=== PATIENT | female | born 1955 | race Caucasian/White ===

== ENCOUNTER 2017-11-27 06:39 | Day surgery (SDC) | payer OTHER ==
[2017-11-27] MEDS ORDERED: Midazolam 1 MG/ML 2 ML SDV IV ONE ×4 (06:40→07:43)
[2017-11-27] MEDS ORDERED: fentaNYL 100 MCG/2 ML SDV IV ONE ×3 (06:40→07:37)
[2017-11-27] MEDS ORDERED: Dextrose 5%-0.45% NaCl 1,000 ML IV SCH (07:15)
[2017-11-27] MEDS ORDERED: Midazolam 1 MG/ML 2 ML SDV ONE (07:21)
[2017-11-27] MEDS ORDERED: fentaNYL 100 MCG/2 ML SDV ONE (07:21)
--- NOTE | 2017-11-27 10:17 | OR ---
DATE: 11/27/2017 PREOPERATIVE DIAGNOSIS: Personal history of prior colon polyps. POSTOPERATIVE DIAGNOSIS: Personal history of prior colon polyps. PROCEDURE: Total colonoscopy. ANESTHESIA: Conscious sedation with IV Versed and fentanyl. SPECIMEN: None. OPERATIVE FINDINGS: Extensive sigmoid diverticulosis, otherwise, normal. RECOMMENDATION: Followup screening colonoscopy for polyps 10 years or earlier for other symptoms. INDICATION FOR PROCEDURE: This 62-year-old female had a prior colonoscopy 10 years ago with removal of polyps by her report. PROCEDURE IN DETAIL: After adequate preparation, a colonoscope was inserted into the rectum. This was easily passed all the way to the cecum. Confirmation of the cecum was made by visualization of the ileocecal valve on palpation in the right lower quadrant. A photograph of the ileocecal valve was taken. The bowel prep was excellent. On withdrawal of the scope, the only abnormality noted was extensive sigmoid diverticulosis. Otherwise, no recurrent polyps, colitis, masses, or bleeding sites. Anal and rectal examination were normal. Air was suctioned from the colon, and the scope was removed. [facility] /[id number]
== END 2017-11-27 08:59 | disposition home or self-care (01) ==
LOC: DL.ENDO 06:39
PROVIDERS: ATTEND Surgery
DX: Z12.11 Encounter for screening for malignant neoplasm of colon (principal); K57.30 Diverticulosis of large intestine without perforation or abscess without bleeding; Z86.010 Personal history of colon polyps; Z80.0 Family history of malignant neoplasm of digestive organs
CPT/HCPCS: 45378; J2250; J3010; J7042

== ENCOUNTER 2020-11-20 17:06 | Emergency (ER) | payer MEDICARE, OTHER ==
[2020-11-20] MEDS ORDERED: Sodium Chloride 0.9% 10 ML Syringe FLUSH PRN (17:57)
--- NOTE | 2020-11-20 18:03 | EDM.PDOC ---
<Ricky Pierre Kelly - Last Filed: 11/22/20 07:07> ED HPI GENERAL MEDICAL PROBLEM - General Chief Complaint: General Stated Complaint: RETAINING FLUID POST OP Time Seen by Provider: 11/20/20 17:40 Source of Information: Reports: Patient History Limitations: Reports: No Limitations - History of Present Illness INITIAL COMMENTS - FREE TEXT/NARRATIVE: 65 y/o F had surgery 11/14 to reconnect her colon. She reports that she was discharged yesterday and since last night she has developed severe edema in her legs and around her eyes. She reports no similar symptoms in the past. She has no other physial complaints. She denies fever, cough, chills, drugs, etoh, cp, db, abd pn, pelvic pn, extremity pn. Since her surgery pt has not been able to eat well and has olny been able to have broth and other foods with minimal nutrition. - Related Data Allergies Allergy/AdvReac Type Severity Reaction Status Date / Time levofloxacin [From Levaquin] Allergy Dizziness Verified 11/20/20 17:51 varenicline Allergy Unkown Verified 11/20/20 17:51 seasonal Allergy Unknown Uncoded 11/20/20 17:51 Home Meds: Home Meds Escitalopram [Lexapro] 10 mg PO DAILY 11/27/17 [History] Lisinopril 20 mg PO DAILY 11/27/17 [History] Simvastatin 20 mg PO DAILY 11/27/17 [History] hydroCHLOROthiazide [Hydrochlorothiazide] 12.5 mg PO DAILY 11/27/17 [History] metFORMIN HCl [Metformin HCl] 500 mg PO DAILY 11/27/17 [History] Cholecalciferol (Vitamin D3) [Vitamin D3] 2,000 units PO DAILY 10/25/18 [History] Fluticasone/Vilanterol [Breo Ellipta 100-25 MCG Inhalation Kit] 1 inh INH DAILY 10/25/18 [History] traMADol HCl [Tramadol HCl] 50 mg PO TID PRN 10/25/18 [History] ALPRAZolam [Xanax] 0.5 mg PO Q8H PRN 11/20/20 [History] Acetaminophen [Tylenol Extra Strength] 1,000 mg PO Q4H PRN 11/20/20 [History] Aspirin [Adult Low Dose Aspirin EC] 81 mg PO DAILY 11/20/20 [History] Ferrous Fumarate/Vitamin C [Vitron-C] 1 tab PO DAILY 11/20/20 [History] L.acidoph,Paracasei, B.lactis [Probiotic] 1 cap PO DAILY 11/20/20 [History] Magnesium Oxide [Magnesium] 400 mg PO DAILY 11/20/20 [History] oxyCODONE 5 mg PO Q4H PRN 11/20/20 [History] Past Medical History HEENT History: Reports: None Cardiovascular History: Reports: High Cholesterol, Hypertension Respiratory History: Reports: COPD Gastrointestinal History: Reports: None Genitourinary History: Reports: Chronic Renal Insuffiency 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: Musculoskeletal History: Reports: Fibromyalgia Neurological History: Reports: None Psychiatric History: Reports: Depression Endocrine/Metabolic History: Reports: Diabetes, Type II Hematologic History: Reports: None Immunologic History: Reports: None Oncologic (Cancer) History: Reports: None Dermatologic History: Reports: None - Infectious Disease History Infectious Disease History: Reports: Chicken Pox, Other (See Below) Other Infectious Disease History: unknown - Past Surgical History Head Surgeries/Procedures: Reports: None HEENT Surgical History: Reports: None Cardiovascular Surgical History: Reports: Carotid Endarterectomy Respiratory Surgical History: Reports: None GI Surgical History: Reports: Cholecystectomy Female Surgical History: Reports: Breast Biopsy Musculoskeletal Surgical History: Reports: None Social & Family History - Caffeine Use Caffeine Use: Reports: Soda Caffeine Use Comment: 3 cans daily ED ROS GENERAL - Review of Systems Review Of Systems: Comprehensive ROS is negative, except as noted in HPI. #1 Interpretation EKG Date: 11/20/20 Time: 18:25 Central: Normal P-Wave: Present QRS: Normal ST-T: Normal QT: Normal Course - Re-Assessments/Exams Free Text/Narrative Re-Assessment/Exam: 11/20/20 18:49 care transferred to shireen lopes PA-c at shift change Departure - Departure Disposition: Home, Self-Care 01 Clinical Impression: Body fluid retention, Hypomagnesemia, Hypokalemia - Discharge Information Instructions: Hypomagnesemia, Peripheral Edema Referrals: Ginna Vogt, END MAKER [Primary Care Provider] - Forms: ED Department Discharge Additional Instructions: increase nutruition boot or ensure type supplements additional dose oral magnesium tonight limit sodium/ slat intake continue home medication elevate lower extremities recheck clinic , sooner if symptoms worsen <LópezNeela Roegr - Last Filed: 11/26/20 06:46> ED EXAM, GENERAL - Physical Exam Exam: See Below Exam Limited By: No Limitations General Appearance: Alert, Anxious, Other (edema, , baggy upper leye lidds) Eye Exam: Bilateral Eye: EOMI, PERRL Ears: Normal External Exam Nose: Normal Inspection Throat/Mouth: Normal Inspection Head: Atraumatic, Normocephalic Neck: Limited Range of Motion Respiratory/Chest: No Respiratory Distress, Lungs Clear, Normal Breath Sounds Cardiovascular: Normal Peripheral Pulses, Regular Rate, Rhythm GI/Abdominal: Normal Bowel Sounds, Soft, Tender (mild psot surgical incision intact) Extremities: Normal Inspection Neurological: Alert, Oriented, Normal Cognition Psychiatric: Normal Affect, Normal Mood Skin Exam: Warm, Dry, Pallor Course - Vital Signs Last Recorded V/S: Last Vital Signs Temp 97.7 F 11/20/20 22:10 Pulse 86 11/20/20 22:10 Resp 18 11/20/20 22:10 BP 126/68 11/20/20 22:10 Pulse Ox 98 11/20/20 22:10 - Orders/Labs/Meds Labs: Laboratory Tests 11/20/20 11/20/20 11/20/20 Range/Units 18:12 18:12 21:30 WBC 10.3 H (5.0-10.0) 10^3/uL RBC 3.33 L (4.2-5.4) 10^6/uL Hgb 9.6 L D (12.0-16.0) g/dL Hct 29.7 L (37.0-47.0) % MCV 89.2 (80-100) fL MCH 28.8 (27.0-34.0) pg MCHC 32.3 L (33.0-35.0) g/dL Plt Count 248 (150-450) 10^3/uL Neut % (Auto) 67.7 (42.2-75.2) % Lymph % (Auto) 20.9 (20.5-50.1) % Sutton % (Auto) 9.9 H (2-8) % Eos % (Auto) 1.1 (1.0-3.0) % Baso % (Auto) 0.4 (0.0-1.0) % Add Manual Diff Yes Neutrophils % (Manual) 69 (42-75) % Band Neutrophils % 0 % Lymphocytes % (Manual) 27 (20-50) % Monocytes % (Manual) 2 (2-8) % Eosinophils % (Manual) 1 (1-3) % Basophils % (Manual) 1 Sodium 140 (136-145) mmol/L Potassium 3.1 L D (3.5-5.1) mmol/L Chloride 104 (98-107) mmol/L Carbon Dioxide 27 (21-32) mmol/L Anion Gap 12.1 (7-13) mEq/L BUN 5 L (7-18) mg/dL Creatinine 0.86 (0.55-1.02) mg/dL Est Cr Clr Drug Dosing 50.89 mL/min Estimated GFR (MDRD) > 60 BUN/Creatinine Ratio 5.8 (No establ ref range) Glucose 103 H (70-99) mg/dL Calcium 8.4 L (8.5-10.1) mg/dL Magnesium 1.1 L 1.8 (1.8-2.4) mg/dL Total Bilirubin 0.5 (0.2-1.0) mg/dL AST 90 H (15-37) U/L ALT 57 (14-59) U/L Alkaline Phosphatase 62 (46-116) U/L B-Natriuretic Peptide 180 H (0-100) pg/ml Total Protein 5.3 L (6.4-8.2) g/dL Albumin 2.5 L (3.4-5.0) g/dL Globulin 2.8 Albumin/Globulin Ratio 0.89 TSH, Ultra Sensitive 2.92 (0.36-3.74) uIU/mL Meds: Medications Discontinued Medications Generic Name Dose Route Start Last Admin Trade Name Freq PRN Reason Stop Dose Admin Magnesium Sulfate 2 gm/ Premix 50 mls @ 25 mls/hr 11/20/20 18:48 11/20/20 19:27 IV 11/20/20 20:47 25 mls/hr ONETIME ONE Administration Magnesium Sulfate 2 gm/ Premix 50 mls @ 25 mls/hr 11/20/20 18:49 11/20/20 22:00 IV 11/20/20 20:48 Not Given ONETIME ONE Ondansetron HCl 4 mg 11/20/20 18:48 11/20/20 19:28 Ondansetron 4 Mg/2 Ml Sdv IV 11/20/20 18:49 4 mg ONETIME ONE Administration Potassium Chloride 60 meq 11/20/20 18:48 11/20/20 20:02 Potassium Chloride 10 Meq Tab.Er PO 11/20/20 18:49 60 meq ONETIME ONE Administration Sodium Chloride 10 ml 11/20/20 17:57 Sodium Chloride 0.9% 10 Ml Syringe FLUSH ASDIRECTED PRN Keep Vein Open Departure - Departure Time of Disposition: 21:52 Condition: Fair - Discharge Information *PRESCRIPTION DRUG MONITORING PROGRAM REVIEWED*: No *COPY OF PRESCRIPTION DRUG MONITORING REPORT IN PATIENT DON: No
[2020-11-20 18:44] LABS: ANION GAP 12.1 mEq/L (7-13); CHLORIDE,CL 104 mmol/L (98-107); SODIUM,NA 140 mmol/L (136-145)
[2020-11-20] MEDS ORDERED: Potassium Chloride 10 MEQ Tab.ER PO ONE (18:48)
[2020-11-20] MEDS ORDERED: Magnesium Sulfate/Water 2 GM in Premix Bag 1 BAG IV ONE ×2 (18:48→18:49)
[2020-11-20] MEDS ORDERED: Ondansetron 4 MG/2 ML SDV IV ONE (18:48)
--- NOTE | 2020-11-20 18:59 | CR ---
PROCEDURE INFORMATION: Exam: XR Chest Exam date and time: 11/20/2020 6:30 PM Age: 65 years old Clinical indication: Other: Edema TECHNIQUE: Imaging protocol: XR of the chest. Views: 1 view. COMPARISON: CT Chest wo Cont 11/10/2017 1:23 PM FINDINGS: Lungs: Faint bibasilar opacities worse on the right. Pleural spaces: Unremarkable. No pleural effusion. No pneumothorax. Heart/Mediastinum: Unremarkable. No cardiomegaly. Bones/joints: Unremarkable. Other findings: Tiny right effusion. IMPRESSION: Faint right basilar opacity and tiny effusion. Differential includes infection and edema.
== END 2020-11-20 22:25 | disposition home or self-care (01) ==
LOC: DL.ED 17:06
DX: E83.42 Hypomagnesemia (principal); E87.6 Hypokalemia; R60.0 Localized edema; E78.00 Pure hypercholesterolemia, unspecified; I12.9 Hypertensive chronic kidney disease with stage 1 through stage 4 chronic kidney disease, or unspecified chronic kidney disease; E11.22 Type 2 diabetes mellitus with diabetic chronic kidney disease; N18.9 Chronic kidney disease, unspecified; J44.9 Chronic obstructive pulmonary disease, unspecified; Z88.8 Allergy status to other drugs, medicaments and biological substances; Z91.048 Other nonmedicinal substance allergy status; Z79.84 Long term (current) use of oral hypoglycemic drugs; Z79.82 Long term (current) use of aspirin; Z79.899 Other long term (current) drug therapy
CPT/HCPCS: 36415; 71045; 80053; 83735; 83880; 84443; 85025; 93005; 96365; 96366; 96375; 99284; A9270; J2405; J3475